=== PATIENT | female | born 1970 | race Hispanic/Latino ===

== ENCOUNTER 2019-07-01 13:04 | Emergency (ER) | payer SELFPAY ==
[2019-07-01 13:24] VITALS: BP 153/92
--- NOTE | 2019-07-01 13:24 | Emergency Department Report ---
Blank Doc - Documentation Documentation: 49-year-old female that presents with right knee pain and swelling after feeling a popping sensation. This initial assessment/diagnostic orders/clinical plan/treatment(s) is/are subject to change based on patient's health status, clinical progression and re- assessment by fellow clinical providers in the ED. Further treatment and workup at subsequent clinical providers discretion. Patient/guardians urged not to elope from the ED as their condition may be serious if not clinically assessed and managed. Initial orders include: 1- Patient sent to [facility] for further evaluation and treatment 2- Xrays
--- NOTE | 2019-07-01 14:34 | XRay Report ---
Right knee-3 views INDICATION: knee pain. COMPARISON: None. IMPRESSION: No acute osseous or soft tissue abnormality. Mild tricompartmental degenerative arthr osis. Signer Name: Aaron Nunes MD Signed: 07/01/2019 2:29 PM Workstation Name: [id number]
[2019-07-01] MEDS ORDERED: KETOROLAC 30 MG/1 ML INJ IM ONE (16:21)
--- NOTE | 2019-07-01 16:23 | Emergency Department Report ---
ED Lower Extremity HPI - General Chief Complaint: Extremity Injury, Lower Stated Complaint: RT KNEE TWISTED /SWOLLEN PAIN Time Seen by Provider: 07/01/19 13:23 Source: patient Mode of arrival: Ambulatory Limitations: No Limitations - History of Present Illness Initial Comments: This is a 49-year-old female who presents to the emergency room with right knee pain with swelling for 1 week. 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 She reports pain to posterior knee is worse with bending. She also reports swelling to the anterior knee. She is applying hot and cold compresses with minimal improvement of symptoms. She denies numbness or tingling, paresthesias, weakness, warm to touch, or bruising. MD Complaint: knee injury (right) Onset/Timin -: week(s) Injury: Knee: Right Type of Injury: unknown Place: work Severity: severe Severity scale (0 -10): 10 Improves With: nothing Worsens With: movement Context: walking Associated Symptoms: snap/pop sensation, swelling, able to partially bear w eight. denies: numbness, tingling Treatments Prior to Arrival: cold therapy, NSAIDS - Related Data Previous Rx's Medication Instructions Recorded Last Taken Type HYDROcodone/APAP 5-325 [[place] 1 each PO Q6HR PRN #20 tablet 05/04/14 Unknown Rx 5-325 mg TAB] Naproxen [Naprosyn] 500 mg PO Q12H #60 tablet 05/04/14 Unknown Rx Diclofenac Potassium 50 mg PO TID PRN #30 tablet 07/01/19 Unknown Rx Allergies Allergy/AdvReac Type Severity Reaction Status Date / Time No Known Allergies Allergy Verified 05/03/14 23:29 ED Review of Systems ROS: Stated complaint: RT KNEE TWISTED /SWOLLEN PAIN Other details as noted in HPI Constitutional: denies: chills, fever Respiratory: denies: cough, shortness of breath, wheezing Cardiovascular: denies: chest pain, palpitations Gastrointestinal: denies: abdominal pain, nausea, diarrhea Musculoskeletal: joint swelling (right knee), arthralgia (right knee). denies: back pain Skin: denies: rash, lesions Neurological: denies: headache, weakness, paresthesias Psychiatric: denies: anxiety, depression ED Past Medical Hx - Past Medical History Previous Medical History?: Yes Additional medical history: epilepsy - Surgical History Past Surgical History?: Yes Additional Surgical History: tubal ligation - Social History Smoking Status: Never Smoker Substance Use Type: None - Medications Home Medications: Home Medications Medication Instructions Recorded Confirmed Last Taken Type HYDROcodone/APAP 5-325 [[place] 1 each PO Q6HR PRN #20 tablet 05/04/14 Unknown Rx 5-325 mg TAB] Naproxen [Naprosyn] 500 mg PO Q12H #60 tablet 05/04/14 Unknown Rx Diclofenac Potassium 50 mg PO TID PRN #30 tablet 07/01/19 Unknown Rx ED Physical Exam - General Limitations: No Limitations General appearance: alert, in no apparent distress - Respiratory Respiratory exam: Present: normal lung sounds bilaterally. Absent: respiratory distress - Cardiovascular Cardiovascular Exam: Present: regular rate, normal rhythm. Absent: systolic murmur, diastolic murmur, rubs, gallop - GI/Abdominal GI/Abdominal exam: Present: soft, normal bowel sounds - Expanded Lower Extremity Exam Right Upper Leg exam: Present: normal inspection, full ROM Knee exam: Present: swelling (anterior patella), pain w/ pronation/supination, full knee extension. Absent: full ROM (limited ROM 2/2 pain), tenderness, abrasion, laceration, ecchymosis, deformity, erythema, pain/laxity with valgus, pain/laxity with varus Lower Leg exam: Present: normal inspection, full ROM Ankle exam: Present: normal inspection, full ROM Foot/Toe exam: Present: normal inspection, full ROM Neuro vascular tendon exam: Present: no vascular compromise Gait: Positive: observed and limited by pain - Neurological Exam Neurological exam: Present: alert, oriented X3, normal gait - Psychiatric Psychiatric exam: Present: normal affect, normal mood - Skin Skin exam: Present: warm, dry, intact, normal color. Absent: rash ED Course Vital Signs 07/01/19 13:21 Temperature 98.6 F Pulse Rate 75 Respiratory 18 Rate Blood Pressure 153/92 O2 Sat by Pulse 97 Oximetry ED Lower Extremity MDM - Radiology Data Radiology results: report reviewed Right knee-3 views INDICATION: knee pain. COMPARISON: None. IMPRESSION: No acute osseous or soft tissue abnormality. Mild tricompartmental degenerative arthrosis. - Medical Decision Making Patient was examined by me. Patient is nontoxic appearing and stable. Vitals are normal. Obtained x-ray of right knee. No acute osseous or soft tissue abnormality. Mild tricompartmental degenerative arthrosis. Given analgesics while in the ER. There is joint pain reproduced with palpation which cannot rule out sprain or torn ligament. A knee immobilizer was applied to right knee. Patient instructed to remain nonweightbearing. Given crutches with education. Patient informed of results. Start diclofenac for pain. Follow up with PCP or return to the ER with worsening symptoms. Patient discharged home in stable condition. Critical care attestation.: If time is entered above; I have spent that time in minutes in the direct care of this critically ill patient, excluding procedure time. ED Disposition Clinical Impression: Posterior right knee pain Osteoarthritis Qualifiers: Osteoarthritis location: knee Osteoarthritis type: primary Laterality: right Qualified Code(s): M17.11 - Unilateral primary osteoarthritis, right knee Injury of knee Qualifiers: Encounter type: initial encounter Laterality: right Qualified Code(s): S89.91XA - Unspecified injury of right lower leg, initial encounter Disposition: TO HOME OR SELFCARE Is pt being admited?: No Condition: Stable Instructions: Arthralgia (ED), Osteoarthritis (ED) Additional Instructions: Rest Use ice or heat on affected area for 20 minutes and off for 2 hours. Take pain medication as needed for pain. Follow up with Primary Care Provider in 2-3 days. Prescriptions: Diclofenac Potassium 50 mg PO TID PRN #30 tablet PRN Reason: Pain , Severe (7-10) Referrals: IZA SAMS MD [Staff Physician] - 3-5 Days [facility] [Outside] - 3-5 Days [facility] [Outside] - 3-5 Days [facility] [Outside] - 3-5 Days Forms: Work/School Release Form(ED) Time of Disposition: 16:24
== END 2019-07-01 16:49 | disposition home or self-care (01) ==
LOC: ED 13:04
DX: S89.91XA Unspecified injury of right lower leg, initial encounter (principal); M17.11 Unilateral primary osteoarthritis, right knee; Z79.899 Other long term (current) drug therapy; Z98.51 Tubal ligation status; X50.1XXA Overexertion from prolonged static or awkward postures, initial encounter; Y93.01 Activity, walking, marching and hiking; Y92.098 Other place in other non-institutional residence as the place of occurrence of the external cause; Y99.8 Other external cause status
CPT/HCPCS: 29505; 73562; 96372; 99283; J1885